=== PATIENT | female | born 1990 | race African-American/Black ===

== ENCOUNTER 2022-03-07 05:12 | Day surgery (SDC) | payer OTHER ==
[2022-03-06 09:23] VITALS: BMI 28.0
[~2022-03-07 05:12] MED LIST: BUPIVACAINE HCL/PF 0.5% (5MG/ML) 10 ML VIAL NR ONE; LIDOCAINE 1% P/F 10 MG/ML VIAL INF ONE; TRIAMCINOLONE ACET 40MG/1ML VIAL IM ONE
[2022-03-07] MEDS ORDERED: BUPIVACAINE HCL/PF 0.5% (5MG/ML) 10 ML VIAL ONE (07:32)
[2022-03-07] MEDS ORDERED: LIDOCAINE HCL/PF 1% SDV 5ML VIAL ONE (07:32)
[2022-03-07] MEDS ORDERED: BUPIVACAINE HCL/PF 0.5% (5MG/ML) 10 ML VIAL NR ONE (09:40)
[2022-03-07] MEDS ORDERED: TRIAMCINOLONE ACET 40MG/1ML VIAL IM ONE (09:40)
[2022-03-07] MEDS ORDERED: IOHEXOL 180 MG/1 ML ML IJ ONE (09:40)
[2022-03-07] MEDS ORDERED: LIDOCAINE 1% P/F 10 MG/ML VIAL INF ONE (09:40)
[2022-03-07 10:10] VITALS: BP 106/72; PULSE 69; RESP 18; TEMP 98.3
[2022-03-07] MEDS ORDERED: TRIAMCINOLONE ACET 40MG/1ML VIAL ONE (10:29)
== END 2022-03-07 10:19 | disposition home or self-care (01) ==
LOC: JASU-SURG 05:12
PROVIDERS: ATTEND Pain Medicine Pain Medicine
PROC: 3E0U3BZ Introduction of Anesthetic Agent into Joints, Percutaneous Approach (ICD-10-PCS; 2022-03-07)
PROC: 3E0U33Z Introduction of Anti-inflammatory into Joints, Percutaneous Approach (ICD-10-PCS; principal; 2022-03-07 09:15)
DX: M53.3 Sacrococcygeal disorders, not elsewhere classified (principal)
CPT/HCPCS: 76000-TC-FY; 81025